=== PATIENT | male | born 1990 | race Caucasian/White ===

== ENCOUNTER 2020-05-13 01:55 | Emergency (ER) | payer OTHER ==
[2020-05-13 02:02] VITALS: BP 121/91; PULSE 115; RESP 17; TEMP 98.7
--- NOTE | 2020-05-13 02:50 | XR ---
EXAM: XR Chest, 2 Views CLINICAL HISTORY: ITS.REASON XR Reason: Chest discomfort TECHNIQUE: Frontal and lateral views of the chest. COMPARISON: No relevant prior studies available. FINDINGS: Lungs: Mild perihilar/infrahilar opacities. Query old granulomatous disease. Pleural space: No significant pleural effusion or pneumothorax. Heart: Unremarkable. Mediastinum: Unremarkable. Bones/joints: No acute fracture. IMPRESSION: Mild perihilar/infrahilar opacities. Correlate clinically regarding inflammatory/infectious process.
--- NOTE | 2020-05-13 03:00 | ED ---
General Adult HPI - General Chief complaint: Chest Pain Stated complaint: Chest pain Source: patient Mode of arrival: ambulatory Limitations: no limitations - History of Present Illness Initial comments: 30-year-old male patient presents to the emergency department today reporting throbbing in his hands and pounding in his chest. He states that just prior to arrival he was laying in bed when he got a foot cramp. He states he then began to feel throbbing in his hands and pounding in his chest. He states after this his neck became stiff. He states he does have a history of anxiety so he took a short shower to see if this would ease his symptoms. He states it did not help so he came in for evaluation. Patient does admit to smoking marijuana this evening though this is not new for him, he does try to avoid smoking in the evening due to it causing anxiety and paranoia. He admits to smoking cigarettes as well. Denies any other medical problems. Patient denies any recent rash, fever, chills, cough, shortness of breath, abdominal pain, nausea, vomiting, diarrhea, constipation, back pain, hematuria, dysuria, urinary urgency, urinary frequency, headache, visual changes, or any other complaints. - Related Data Allergies Allergy/AdvReac Type Severity Reaction Status Date / Time bee venom protein (honey bee) Allergy Anaphylaxis Verified 05/13/20 02:02 nickel Allergy Anaphylaxis Verified 05/13/20 02:02 Review of Systems ROS Statement: Those systems with pertinent positive or pertinent negative responses have been documented in the HPI. ROS Other: All systems not noted in ROS Statement are negative. Past Medical History Additional Past Medical History / Comment(s): pt says his primary care said a "flap in his heart" doesnt work right. History of Any Multi-Drug Resistant Organisms: None Reported Past Surgical History: No Surgical Hx Reported Past Psychological History: No Psychological Hx Reported Smoking Status: Current every day smoker Past Alcohol Use History: None Reported Past Drug Use History: Marijuana General Exam Limitations: no limitations General appearance: alert, in no apparent distress, other (This is a well- developed, well-nourished adult male patient in no acute distress. Vital signs upon presentation are temperature 98.7F, pulse 1:15, respirations 17, blood pressure 121/91, pulse ox 99% on room air.) Eye exam: Present: normal appearance, PERRL, EOMI. Absent: scleral icterus, conjunctival injection, periorbital swelling ENT exam: Present: normal exam, normal oropharynx, mucous membranes moist Respiratory exam: Present: normal lung sounds bilaterally. Absent: respiratory distress, wheezes, rales, rhonchi, stridor Cardiovascular Exam: Present: regular rate, normal rhythm, normal heart sounds. Absent: systolic murmur, diastolic murmur, rubs, gallop, clicks GI/Abdominal exam: Present: soft, normal bowel sounds. Absent: distended, tenderness, guarding, rebound, rigid Neurological exam: Present: alert, oriented X3, CN II-XII intact Psychiatric exam: Present: normal affect, normal mood Skin exam: Present: warm, dry, intact, normal color. Absent: rash Course Vital Signs 05/13/20 01:58 Temperature 98.7 F Pulse Rate 115 H Respiratory 17 Rate Blood Pressure 121/91 O2 Sat by Pulse 99 Oximetry EKG Findings - EKG Comments: EKG Findings:: EKG obtained at oh to 31 shows normal sinus rhythm with a ventricular rate of 100, MA interval 120, QRS duration 86, QT 340, QTC 438. No evidence of ST elevation or depression. Medical Decision Making - Medical Decision Making 30-year-old male patient with benign past medical history, current smoker presents to the emergency department today for evaluation of throbbing in his hands and feet as well as pounding in his chest. Physical examination is unremarkable. Neurologically intact with no focal deficits. Heart sounds are normal. Lungs are clear to auscultation with good air movement. He is not coughing. Vital signs are within normal ranges. Chest x-ray is negative. EKG shows sinus rhythm with no ST elevation or depression. I did discuss findings and results with the patient. He'll be discharged this time to follow-up with his primary care physician for recheck in 1-2 days. Return parameters were discussed in detail. He verbalizes understanding and agrees with this plan. - Radiology Data Radiology results: report reviewed, image reviewed Two-view x-ray of the chest is obtained. Report was reviewed in its entirety. Impression by Dr. Romeo shows mild perihilar/infrahilar opacities correlate clinically regarding inflammatory versus infectious process. Disposition Clinical Impression: Muscle cramping, Chest pain Disposition: HOME SELF-CARE Condition: Good Instructions (If sedation given, give patient instructions): Chest Pain (ED), Muscle Cramp (ED) Additional Instructions: Follow-up with your primary care physician for recheck in 1-2 days. Return to emergency department immediately for any new, worsening, or concerning symptoms. Is patient prescribed a controlled substance at d/c from ED?: No Referrals: Nonstaff,Physician [Primary Care Provider] - 1-2 days Time of Disposition: 03:05
== END 2020-05-13 03:20 | disposition home or self-care (01) ==
LOC: EC 01:55
DX: R07.9 Chest pain, unspecified (principal); R25.2 Cramp and spasm; F17.210 Nicotine dependence, cigarettes, uncomplicated; Z91.030 Bee allergy status; Z91.09 Other allergy status, other than to drugs and biological substances
CPT/HCPCS: 71046; 93005; 99285